=== PATIENT | male | born 1960 | race Caucasian/White ===

== ENCOUNTER 2017-10-11 09:23 | Inpatient (IN) | payer OTHER ==
[~2017-10-11] VITALS: Ht 180.3 cm; Wt 98.1 kg
[2017-10-11 09:33] VITALS: Ht 180.3 cm; Wt 98.1 kg
[2017-10-11 10:10] LABS: CALCIUM 8.9 mg/dL (8.5-10.1); CARBON DIOXIDE 31.6 mmol/L (21-32); CREATININE SERUM 1.4 mg/dL (0.7-1.3); POTASSIUM SERUM 3.8 mmol/L (3.5-5.1)
[2017-10-11 10:20] LABS: PLATELET COUNT 230 x10^3mcL (130-400); RED CELL DISTRIBUTION WIDTH 13.3 % (11.5-14.5)
[2017-10-11 11:40] LABS: ATYPICAL LYMPH 1 %; BAND NEUTROPHIL 2 % (0-10); BASOPHIL 0 % (0-2); MONOCYTE 1 % (0-7); SEGMENTED NEUTROPHILS 96 % (37-75)
[2017-10-11 11:41] LABS: PLATELET MORPHOLOGY PLATELETS DECREASED; rbc morphology (normal/abnorm) NORMAL (NORMAL)
[2017-10-11 13:32] VITALS: BP 125/81
[2017-10-11 14:10] LABS: T3 TOTAL 0.98 ng/mL
[2017-10-11 14:26] LABS: ALBUMIN 3.8 g/dL (3.4-5.0); BILIRUBIN DIRECT 0.48 mg/dL (0.0-0.2); BILIRUBIN TOTAL 2.6 mg/dL (0.20-1.00)
[2017-10-11 15:20] LABS: CHOLESTEROL/HDL RATIO 3.2; MAGNESIUM 2.4 mg/dL (1.8-2.4)
[2017-10-11 15:28] LABS: FREE T4 1.6 ng/dL (0.76-1.46); FREE THYROXINE INDEX 4.1 ug/dL (1.4-4.5); T4(THYROXINE) 11.3 ug/dL (4.7-13.3)
[2017-10-11 18:43] LABS: microscopic required? NO
[2017-10-11 18:49] LABS: urine erythrocyte NEGATIVE (NEGATIVE)
[2017-10-11 18:58] VITALS: BP 139/93
[2017-10-11 19:00] LABS: AMPHETAMINE QUAL UR NONE DETECTED (NEG <=1000)
[2017-10-11 21:37] VITALS: BP 136/87
[2017-10-12 06:11] VITALS: BP 135/92
[2017-10-12 07:15] LABS: BASOPHIL % 0.2 % (0-2); PLATELET COUNT 203 x10^3mcL (130-400); RED CELL DISTRIBUTION WIDTH 13.1 % (11.5-14.5)
[2017-10-12 07:35] LABS: CALCIUM 8.8 mg/dL (8.5-10.1); CARBON DIOXIDE 28.6 mmol/L (21-32); CREATININE SERUM 1.5 mg/dL (0.7-1.3); MAGNESIUM 2.1 mg/dL (1.8-2.4); PHOSPHOROUS 2.6 mg/dL (2.5-4.9); POTASSIUM SERUM 4.5 mmol/L (3.5-5.1)
[2017-10-12] MEDS ORDERED: LEVOFLOXACIN750 M1 PO (09:55)
[2017-10-12] MEDS ORDERED: DOX100 PO (09:56)
[2017-10-12] MEDS ORDERED: APAP/HYDROCODON1 T13 PO (09:57)
[2017-10-12] MEDS ORDERED: LAC PO (10:00)
[2017-10-12 10:37] VITALS: BP 142/93
[2017-10-12 12:38] VITALS: BP 142/93
[2017-10-12 14:30] VITALS: BP 134/88
[2017-10-14 09:21] LABS: RAPID PLASMA REAGIN Reactive (Non Reactive)
== END 2017-10-12 16:25 | disposition home or self-care (01) | DRG 727 ==
LOC: ED 09:23 → DU 12:29
PROVIDERS: Family Medicine; Specialist
DX: N45.3 Epididymo-orchitis (principal); N17.0 Acute kidney failure with tubular necrosis; N43.3 Hydrocele, unspecified; D72.829 Elevated white blood cell count, unspecified; E83.39 Other disorders of phosphorus metabolism; E66.9 Obesity, unspecified; Z68.30 Body mass index [BMI] 30.0-30.9, adult
CPT/HCPCS: 83880; 84439; 87491; 87591; J1885; J1956; J2405; J2543; J3010; J3490; J7030; Q0092